=== PATIENT | male | born 1960 | race Caucasian/White ===

== ENCOUNTER 2021-09-25 13:35 | Inpatient (IN) | payer OTHER ==
[2021-09-25 16:27] VITALS: BMI 21.9
[2021-09-25] MEDS ORDERED: IBUPROFEN 400 MG TABLET (FP) PO PRN (17:02)
[2021-09-25] MEDS ORDERED: methaDONE HCL 10 MG TABLET (FOR DETOX USE ONLY) PO ONE (17:02)
[2021-09-25] MEDS ORDERED: MAGNESIUM HYDROX 2400MG/30ML ORAL SUSPENSION 30 ML CUP PO PRN (17:02)
[2021-09-25] MEDS ORDERED: ACETAMINOPHEN 325 MG TABLET (FP) PO PRN ×2 (17:02)
[2021-09-25] MEDS ORDERED: MAGNESIUM CITRATE 300 ML BOTTLE PO PRN (17:02)
[2021-09-25] MEDS ORDERED: chlordiazePOXIDE HCL 25 MG CAPSULE PO PRN (17:02)
[2021-09-25] MEDS ORDERED: BISMUTH SUBSALICYLATE 524 MG/30 ML PO PRN (17:02)
[2021-09-25] MEDS ORDERED: ONDANSETRON *ODT* 4 MG TABLET SL PRN (17:02)
[2021-09-25] MEDS ORDERED: MAG HYDROX/AL HYDROX/SIMETH 30 ML UNIT-DOSE CUP PO PRN (17:02)
[2021-09-25] MEDS ORDERED: MENTHOL/PHENOL 1 EACH UD MM PRN (17:02)
[2021-09-25] MEDS ORDERED: LOPERAMIDE HCL 2 MG CAPSULE PO PRN (17:02)
[2021-09-25] MEDS ORDERED: hydrOXYzine PAMOATE 25 MG CAPSULE (FP) PO ONE (21:59)
[2021-09-25] MEDS: chlordiazePOXIDE HCL 25 MG CAPSULE PO SCH ×2 (22:02→22:44)
[2021-09-25] MEDS: hydrOXYzine PAMOATE 25 MG CAPSULE (FP) PO SCH ×2 (22:02→22:44)
[2021-09-25] MEDS: MELATONIN 5 MG TABLETS PO SCH (22:58)
[2021-09-25] MEDS: THIAMINE HCL 100 MG TABLET (FP) PO SCH (22:58)
[2021-09-25] MEDS ORDERED: ASPIRIN 81 MG CHEWABLE TABLETS PO ONE (23:56)
[2021-09-26] MEDS: chlordiazePOXIDE HCL 25 MG CAPSULE PO SCH ×4 (06:34→22:47)
[2021-09-26] MEDS ORDERED: methaDONE HCL 10 MG TABLET (FOR DETOX USE ONLY) ONE (09:25)
[2021-09-26] MEDS: PRENATAL VITAMINS W/ FOLIC ACID TABLET (FP) PO SCH (10:25)
[2021-09-26 12:35] LABS: HEMATOCRIT 35.2 % (35.4-49); HEMOGLOBIN 11.8 GM/dL (11.7-16.9); MCH 31.1 pg (25.7-33.7); MCHC 33.5 g/dl (32.0-35.9); MEAN PLT VOLUME 7.9 fl (7.5-11.1); PLATELET COUNT 243 10^3/uL (134-434); RBC 3.79 M/mm3 (4.00-5.60); WHITE BLOOD COUNT 4.9 K/mm3 (4.0-10.0)
[2021-09-26 12:40] LABS: CALCIUM 8.7 mg/dL (8.5-10.1)
[2021-09-26 12:41] LABS: BLOOD UREA NITROGEN 20.9 mg/dL (7-18)
[2021-09-26 12:44] LABS: CREATININE 0.7 mg/dL (0.55-1.3)
[2021-09-26 12:46] LABS: BILIRUBIN,TOTAL 0.2 mg/dL (0.2-1); TOT PROT 6.2 g/dl (6.4-8.2)
[2021-09-26] MEDS: cloNIDine HCL 0.1 MG TABLET PO PRN ×2 (12:53→17:58)
[2021-09-26] MEDS: THIAMINE HCL 100 MG TABLET (FP) PO SCH (22:47)
[2021-09-26] MEDS: MELATONIN 5 MG TABLETS PO SCH (22:47)
[2021-09-27] MEDS: chlordiazePOXIDE HCL 25 MG CAPSULE PO SCH ×4 (05:36→22:25)
[2021-09-27] MEDS ORDERED: methaDONE HCL 10 MG TABLET (FOR DETOX USE ONLY) PO ONE (10:00)
[2021-09-27] MEDS: PRENATAL VITAMINS W/ FOLIC ACID TABLET (FP) PO SCH (10:39)
[2021-09-27] MEDS: SERTRALINE HCL 50 MG TABLET (FP) PO SCH (10:40)
[2021-09-27] MEDS: MELATONIN 5 MG TABLETS PO SCH (22:24)
[2021-09-27] MEDS: THIAMINE HCL 100 MG TABLET (FP) PO SCH (22:24)
[2021-09-27] MEDS: NICOTINE 10 MG CARTRIDGE (INHALER) IH PRN (22:25)
[2021-09-28] MEDS ORDERED: chlordiazePOXIDE HCL 10 MG CAPSULE PO PRN
[2021-09-28] MEDS: METHOCARBAMOL 500 MG TABLET PO PRN ×2 (05:38→22:48)
[2021-09-28] MEDS: chlordiazePOXIDE HCL 10 MG CAPSULE PO SCH ×4 (06:01→22:46)
[2021-09-28] MEDS ORDERED: methaDONE HCL 10 MG TABLET (FOR DETOX USE ONLY) ONE (09:22)
[2021-09-28] MEDS: PRENATAL VITAMINS W/ FOLIC ACID TABLET (FP) PO SCH (10:36)
[2021-09-28] MEDS: SERTRALINE HCL 50 MG TABLET (FP) PO SCH (10:36)
[2021-09-28] MEDS: NICOTINE 10 MG CARTRIDGE (INHALER) IH PRN (11:32)
[2021-09-28 21:25] LABS: URINE APPEARANCE CLEAR; URINE BILIRUBIN NEGATIVE (NEGATIVE); URINE COLOR YELLOW; URINE GLUCOSE (UA) NEGATIVE (NEGATIVE); URINE KETONE NEGATIVE (NEGATIVE); URINE LEUK ESTERASE NEGATIVE (NEGATIVE); URINE NITRITE NEGATIVE (NEGATIVE); URINE PROTEIN NEGATIVE (NEGATIVE); URINE UROBILINOGEN 0.2 mg/dL (0.2-1.0)
[2021-09-28] MEDS: MELATONIN 5 MG TABLETS PO SCH (22:46)
[2021-09-28] MEDS: THIAMINE HCL 100 MG TABLET (FP) PO SCH (22:46)
[2021-09-29] MEDS: chlordiazePOXIDE HCL 10 MG CAPSULE PO SCH ×2 (05:52→17:53)
[2021-09-29] MEDS ORDERED: methaDONE HCL 10 MG TABLET (FOR DETOX USE ONLY) PO ONE (10:00)
[2021-09-29] MEDS ORDERED: cloNIDine HCL 0.1 MG TABLET PO ONE (10:00)
[2021-09-29] MEDS: SERTRALINE HCL 50 MG TABLET (FP) PO SCH (10:11)
[2021-09-29] MEDS: NICOTINE 10 MG CARTRIDGE (INHALER) IH PRN ×2 (10:13→17:53)
[2021-09-29] MEDS: PRENATAL VITAMINS W/ FOLIC ACID TABLET (FP) PO SCH (10:14)
[2021-09-29] MEDS: cloNIDine HCL 0.1 MG TABLET PO SCH ×2 (11:59→23:58)
[2021-09-29] MEDS: METHOCARBAMOL 500 MG TABLET PO PRN (18:46)
[2021-09-29] MEDS ORDERED: LIDOCAINE 5% TOPICAL PATCH TP ONE (18:48)
[2021-09-29] MEDS: ASPIRIN 81 MG CHEWABLE TABLETS PO SCH (19:14)
[2021-09-29] MEDS: THIAMINE HCL 100 MG TABLET (FP) PO SCH (23:58)
[2021-09-29] MEDS: MELATONIN 5 MG TABLETS PO SCH (23:58)
[2021-09-30] MEDS ORDERED: chlordiazePOXIDE HCL 10 MG CAPSULE PO ONE (05:00)
[2021-09-30] MEDS ORDERED: LIDOCAINE PATCH REMOVAL MC SCH (07:00)
[2021-09-30 09:12] VITALS: BP 113/80; PULSE 68; TEMP 98.2
[2021-09-30] MEDS: PRENATAL VITAMINS W/ FOLIC ACID TABLET (FP) PO SCH (10:26)
[2021-09-30] MEDS: ASPIRIN 81 MG CHEWABLE TABLETS PO SCH (10:26)
[2021-09-30] MEDS: cloNIDine HCL 0.1 MG TABLET PO SCH (10:26)
[2021-09-30] MEDS: SERTRALINE HCL 50 MG TABLET (FP) PO SCH (10:26)
== END 2021-09-30 12:14 | disposition other institution (70) | DRG 773 ==
LOC: YASAS 13:35 → Y3N 21:58
PROVIDERS: ADMIT Allergy & Immunology; ATTEND Allergy & Immunology
PROC: HZ2ZZZZ Detoxification Services for Substance Abuse Treatment (ICD-10-PCS; principal; 2021-09-25)
DX: F11.23 Opioid dependence with withdrawal (principal); F10.230 Alcohol dependence with withdrawal, uncomplicated; F17.210 Nicotine dependence, cigarettes, uncomplicated; F41.9 Anxiety disorder, unspecified; R07.9 Chest pain, unspecified; Z86.74 Personal history of sudden cardiac arrest; Z87.828 Personal history of other (healed) physical injury and trauma; Z56.0 Unemployment, unspecified; Z59.00 Homelessness unspecified
CPT/HCPCS: 36415; 71046-TC-FY; 80053; 81003; 85027; 86780; 86803; 87522; 93005; 93010; C9803; J0735; U0003; U0005

== ENCOUNTER 2021-09-30 12:00 | Inpatient (IN) | payer OTHER ==
[2021-09-30] MEDS ORDERED: MAG HYDROX/AL HYDROX/SIMETH 30 ML UNIT-DOSE CUP PO PRN (12:27)
[2021-09-30] MEDS ORDERED: P-EPHED 60MG/TRIPROLIDI 2.5MG TABLET PO PRN (12:27)
[2021-09-30] MEDS ORDERED: MAGNESIUM HYDROX 2400MG/30ML ORAL SUSPENSION 30 ML CUP PO PRN (12:27)
[2021-09-30] MEDS ORDERED: MENTHOL/PHENOL 1 EACH UD MM PRN (12:27)
[2021-09-30] MEDS ORDERED: MAGNESIUM CITRATE 300 ML BOTTLE PO PRN (12:27)
[2021-09-30] MEDS ORDERED: NICOTINE POLACRILEX 2 MG GUM BUC PRN (12:27)
[2021-09-30] MEDS ORDERED: guaiFENesin 200 MG/10 ML 10 ML UNIT-DOSE CUPS PO PRN (12:27)
[2021-09-30] MEDS ORDERED: LOPERAMIDE HCL 2 MG CAPSULE PO PRN (12:27)
[2021-09-30] MEDS ORDERED: ACETAMINOPHEN 325 MG TABLET (FP) PO PRN (12:27)
[2021-09-30] MEDS: NICOTINE 10 MG CARTRIDGE (INHALER) IH PRN (13:43)
[2021-09-30] MEDS: IBUPROFEN 400 MG TABLET (FP) PO PRN (19:07)
[2021-09-30] MEDS ORDERED: METHOCARBAMOL 500 MG TABLET PO PRN (19:18)
[2021-09-30] MEDS: THIAMINE HCL 100 MG TABLET (FP) PO SCH (21:27)
[2021-09-30] MEDS: MELATONIN 5 MG TABLETS PO PRN (21:27)
[2021-10-01] MEDS: IBUPROFEN 400 MG TABLET (FP) PO PRN (07:07)
[2021-10-01] MEDS ORDERED: methaDONE HCL 10 MG TABLET PO ONE (10:00)
[2021-10-01] MEDS: ASPIRIN 81 MG CHEWABLE TABLETS PO SCH (10:10)
[2021-10-01] MEDS: PRENATAL VITAMINS W/ FOLIC ACID TABLET (FP) PO SCH (10:10)
[2021-10-01] MEDS: SERTRALINE HCL 50 MG TABLET (FP) PO SCH (10:10)
[2021-10-01] MEDS: NICOTINE 10 MG CARTRIDGE (INHALER) IH PRN (10:57)
[2021-10-01] MEDS: MELATONIN 5 MG TABLETS PO PRN (21:24)
[2021-10-01] MEDS: THIAMINE HCL 100 MG TABLET (FP) PO SCH (21:24)
[2021-10-02] MEDS ORDERED: methaDONE HCL 10 MG TABLET PO ONE (06:00)
[2021-10-02 07:02] VITALS: TEMP 98.4
[2021-10-02] MEDS: PRENATAL VITAMINS W/ FOLIC ACID TABLET (FP) PO SCH (10:42)
[2021-10-02] MEDS: SERTRALINE HCL 50 MG TABLET (FP) PO SCH (10:42)
[2021-10-02] MEDS: ASPIRIN 81 MG CHEWABLE TABLETS PO SCH (10:42)
[2021-10-02 11:27] VITALS: BP 135/72; PULSE 69
[2021-10-03] MEDS ORDERED: methaDONE HCL 10 MG TABLET PO ONE (06:00)
[2021-10-04] MEDS ORDERED: methaDONE HCL 10 MG TABLET PO ONE (06:00)
[2021-10-04] MEDS ORDERED: methaDONE HCL 40 MG DISPERSABLE TABLET PO SCH (06:00)
== END 2021-10-02 13:03 | disposition left against medical advice (07) | DRG 770 ==
LOC: YASAS 12:00 → Y3W 12:02
PROVIDERS: ADMIT Allergy & Immunology; ATTEND Allergy & Immunology
PROC: HZ42ZZZ Group Counseling for Substance Abuse Treatment, Cognitive-Behavioral (ICD-10-PCS; principal; 2021-09-30)
DX: F11.20 Opioid dependence, uncomplicated (principal); F10.20 Alcohol dependence, uncomplicated; F32.A Depression, unspecified; M19.90 Unspecified osteoarthritis, unspecified site; Z87.828 Personal history of other (healed) physical injury and trauma
CPT/HCPCS: 36415; 84484; 93005; 93010; 99282-25